=== PATIENT | male | born 1935 | race Caucasian/White ===

== ENCOUNTER → 2016-07-26 | Outpatient (CLI) | payer OTHER ==
[~2016-07-26] VITALS: Ht 172.7 cm; Wt 77.1 kg
[~2016-07-26] MED LIST: AMLO5TAB2 PO; Atorvastatin Calcium PO; CLOP75TA28 PO; D5W 5% IV ONE; DIPYRIDAMOLE (5MG/ML) 10 ML VIAL IV ONE; DIPYRIDAMOLE IV ONE; HYDR10TA PO; LEVO100T8 PO; LISI-646 PO; OMEP20TA44 PO; TRAM50TA2 PO
== END | disposition home or self-care (01) ==
LOC: Rad HDHVI 07:38
PROVIDERS: ATTEND Internal Medicine Cardiovascular Disease
DX: I10 Essential (primary) hypertension (principal); R06.02 Shortness of breath; E78.00 Pure hypercholesterolemia, unspecified; Z82.49 Family history of ischemic heart disease and other diseases of the circulatory system
CPT/HCPCS: 78452; 93005; 96374; 96375; A9500; J1245

== ENCOUNTER → 2016-08-06 | Outpatient (CLI) | payer OTHER ==
[~2016-08-06] MED LIST changes: +ASPI-231 PO; +CHOL20009 PO; -D5W 5% IV ONE; -DIPYRIDAMOLE (5MG/ML) 10 ML VIAL IV ONE; -DIPYRIDAMOLE IV ONE; +METO25TA62 PO; +TAMS0.4C36 PO
[2016-08-06 13:00] LABS: Basophils # (auto) 0 uL; Basophils % (auto) 0.7 % (0.0-2.0); Eosinophils # (auto) 0.3 uL; Eosinophils % (auto) 4.6 % (0.0-7.0); Hematocrit 44.6 % (41.0-53.0); Lymphocytes # (auto) 2.4 uL; Lymphocytes % (auto) 33.2 % (10.0-50.0); Mean Corpuscular Hemoglobin 27.2 pg (28.0-32.0); Mean Corpuscular Hgb Conc. 31.5 g/dL (32.0-36.0); Mean Corpuscular Volume 86.5 fL (80.0-100.0); Mean Platelet Volume 9.2 fL (7.4-10.4); Monocytes # (auto) 0.7 uL; Monocytes % (auto) 9.8 % (0.0-12.0); Neutrophils # (auto) 3.8 uL; Neutrophils % (auto) 51.7 % (37.0-80.0); Platelet Count (auto) 262 10^3/uL (140-450); Red Cell Distribution Width 14.4 % (11.6-16.0); White Blood Cell 7.3 10^3/uL (4.4-10.8)
[2016-08-06 13:04] LABS: INR 0.99 (0.9-1.15); Partial Thromboplastin Time 24.8 sec (22.64-33.71); Prothrombin Time 10.2 sec (9.37-12.3)
[2016-08-06 13:14] LABS: BUN/Creatinine Ratio 17.6; Bilirubin, Total 0.5 mg/dL (0.2-1.0); Calcium 9.1 mg/dL (8.5-10.1); Potassium 4.3 mmol/L (3.5-5.1)
== END | disposition home or self-care (01) ==
LOC: LAB 09:31
PROVIDERS: ATTEND Urology
DX: Z01.818 Encounter for other preprocedural examination (principal)
CPT/HCPCS: 36415; 80053; 85025; 85610; 85730

== ENCOUNTER 2016-08-08 09:17 | Day surgery (SDC) | payer OTHER ==
[~2016-08-08] VITALS: Ht 172.7 cm; Wt 76.2 kg
[~2016-08-08 09:17] MED LIST changes: -Atorvastatin Calcium PO; -CLOP75TA28 PO; -TRAM50TA2 PO
[2016-08-08] MEDS ORDERED: ceFAZolin 1GM/50ML D5W 50 ML IV ONE (12:55)
[2016-08-08] MEDS ORDERED: fentaNYL CITRATE 100 MCG/2 ML VL ONE (16:17)
[2016-08-08] MEDS ORDERED: GLYCOPYRROLATE 0.2 MG/ML 1ML VIAL ONE (16:18)
[2016-08-08] MEDS ORDERED: ONDANSETRON HCL 4 MG/2 ML VIAL ONE (16:18)
[2016-08-08] MEDS ORDERED: MIDAZOLAM HCL 1MG/1ML-2 ML VIAL ONE (16:18)
[2016-08-08] MEDS ORDERED: KETOROLAC TROMETH 60MG/2ML VIAL IM ONE (16:18)
[2016-08-08] MEDS ORDERED: LIDOCAINE HCL 2 %PF INJ 10ML AMP IJ ONE (16:18)
[2016-08-08] MEDS ORDERED: DEXAMETHASONE SOD PHOS 10MG/1ML VIAL INJ ONE (16:18)
[2016-08-08] MEDS ORDERED: PROPOFOL 10 MG/ML 20 ML IV ONE (16:18)
[2016-08-08] MEDS ORDERED: ONDANSETRON HCL 4 MG/2 ML VIAL IV ONE (17:30)
[2016-08-08] MEDS ORDERED: HYDROmorphone HCL 2 MG/ML VL IV PRN (17:30)
[2016-08-08 18:27] VITALS: BP 144/76
== END 2016-08-08 18:37 | disposition home or self-care (01) ==
LOC: SUR 09:17
PROVIDERS: ATTEND Urology
DX: N40.1 Benign prostatic hyperplasia with lower urinary tract symptoms (principal); N32.0 Bladder-neck obstruction; Z87.891 Personal history of nicotine dependence; I63.9 Cerebral infarction, unspecified; I10 Essential (primary) hypertension; I25.10 Atherosclerotic heart disease of native coronary artery without angina pectoris; K21.9 Gastro-esophageal reflux disease without esophagitis
CPT/HCPCS: 52601; J0690; J1100; J1885; J2250; J2405; J2704; J3010

== ENCOUNTER 2016-08-22 01:43 | Emergency (ER) | payer OTHER ==
[~2016-08-22] VITALS: Ht 172.7 cm; Wt 76.2 kg
[2016-08-22 04:39] LABS: Basophils # (auto) 0 uL; Basophils % (auto) 0.4 % (0.0-2.0); Eosinophils # (auto) 0.2 uL; Eosinophils % (auto) 2.3 % (0.0-7.0); Hematocrit 41.6 % (41.0-53.0); Hemoglobin 14.1 g/dL (13.5-17.5); Lymphocytes # (auto) 1.8 uL; Mean Corpuscular Hemoglobin 28.1 pg (28.0-32.0); Mean Corpuscular Hgb Conc. 33.8 g/dL (32.0-36.0); Mean Corpuscular Volume 83.1 fL (80.0-100.0); Mean Platelet Volume 8.1 fL (7.4-10.4); Monocytes # (auto) 0.6 uL; Monocytes % (auto) 6.2 % (0.0-12.0); Neutrophils # (auto) 7.7 uL; Neutrophils % (auto) 74.1 % (37.0-80.0); Platelet Count (auto) 317 10^3/uL (140-450); Red Cell Distribution Width 14.1 % (11.6-16.0); White Blood Cell 10.4 10^3/uL (4.4-10.8)
[2016-08-22 05:03] LABS: Albumin 3.6 g/dL (3.4-5.0); Anion Gap 9 (5-15); Aspartate Aminotransferase 22 U/L (15-37); BUN/Creatinine Ratio 19.2; Blood Urea Nitrogen 23 mg/dL (7-18); Calcium 8.6 mg/dL (8.5-10.1); Carbon Dioxide 25 mmol/L (21-32); Chloride 104 mmol/L (98-107); GFR African American 75 mL/min; GFR Non-African American 62 mL/min; Glucose 112 mg/dL (74-106); Potassium 4.5 mmol/L (3.5-5.1); Sodium 138 mmol/L (136-145)
[2016-08-22 05:08] LABS: Alkaline Phosphatase 58 U/L (45-117); Bilirubin, Total 0.4 mg/dL (0.2-1.0); Total Protein 6.8 g/dL (6.4-8.2)
[2016-08-22 07:45] VITALS: BP 160/83
== END 2016-08-22 09:26 | disposition home or self-care (01) ==
LOC: ER 01:47
DX: N39.0 Urinary tract infection, site not specified (principal); E07.9 Disorder of thyroid, unspecified; Z85.46 Personal history of malignant neoplasm of prostate; Z86.73 Personal history of transient ischemic attack (TIA), and cerebral infarction without residual deficits; Z79.899 Other long term (current) drug therapy
CPT/HCPCS: 36415; 80053; 84484; 85025; 93005

== ENCOUNTER → 2016-09-06 | Outpatient (CLI) | payer OTHER ==
[2016-09-06 10:54] LABS: Urine Bilirubin Negative (Negative); Urine Blood TRACE /uL (Negative); Urine Ca Oxalate Crystal MOD (None Seen); Urine Color Yellow (Yellow); Urine Glucose Normal (Normal); Urine Ketone Negative (Negative); Urine Mucus FEW (None Seen); Urine Nitrite Negative (Negative); Urine RBC 30 /hpf (0 - 3); Urine Urobilinogen Normal (Negative); Urine pH 6.5 (5.0-8.0)
== END | disposition home or self-care (01) ==
LOC: LAB 10:22
PROVIDERS: ATTEND Urology
DX: N31.2 Flaccid neuropathic bladder, not elsewhere classified (principal); R33.9 Retention of urine, unspecified; C61 Malignant neoplasm of prostate
CPT/HCPCS: 81001; 87086

== ENCOUNTER → 2016-09-24 | Outpatient (CLI) | payer OTHER | END | disposition home or self-care (01) | LOC: LAB 08:43 | PROVIDERS: ATTEND Urology | DX: N40.1 Benign prostatic hyperplasia with lower urinary tract symptoms (principal); C61 Malignant neoplasm of prostate | CPT/HCPCS: 84153 ==

== ENCOUNTER → 2016-09-24 | Outpatient (CLI) | payer OTHER ==
[2016-09-24 08:25] LABS: Basophils # (auto) 0.1 uL; Basophils % (auto) 0.6 % (0.0-2.0); Eosinophils # (auto) 0.3 uL; Eosinophils % (auto) 3.1 % (0.0-7.0); Hematocrit 41.6 % (41.0-53.0); Hemoglobin 13.9 g/dL (13.5-17.5); Lymphocytes # (auto) 1.4 uL; Mean Corpuscular Hgb Conc. 33.4 g/dL (32.0-36.0); Mean Corpuscular Volume 83.7 fL (80.0-100.0); Mean Platelet Volume 8.5 fL (7.4-10.4); Monocytes # (auto) 0.6 uL; Monocytes % (auto) 6.6 % (0.0-12.0); Neutrophils % (auto) 74.7 % (37.0-80.0); Platelet Count (auto) 314 10^3/uL (140-450); Red Cell Distribution Width 14.6 % (11.6-16.0); White Blood Cell 9.3 10^3/uL (4.4-10.8)
[2016-09-24 09:19] LABS: Albumin 3.9 g/dL (3.4-5.0); BUN/Creatinine Ratio 13.8; Bilirubin, Total 0.5 mg/dL (0.2-1.0); Calcium 9.1 mg/dL (8.5-10.1); Potassium 3.7 mmol/L (3.5-5.1); Total Protein 7.3 g/dL (6.4-8.2)
== END | disposition home or self-care (01) ==
LOC: LAB 07:48
PROVIDERS: ATTEND Internal Medicine
DX: I47.1 Supraventricular tachycardia (principal); I69.998 Other sequelae following unspecified cerebrovascular disease; E23.0 Hypopituitarism; Z12.11 Encounter for screening for malignant neoplasm of colon
CPT/HCPCS: 36415; 80053; 80061; 82270; 82306; 82607; 84443; 85025

== ENCOUNTER → 2016-11-04 | Outpatient (CLI) | payer OTHER | END | disposition home or self-care (01) | LOC: LAB 06:54 | PROVIDERS: ATTEND Internal Medicine | DX: E23.0 Hypopituitarism (principal); E11.9 Type 2 diabetes mellitus without complications | CPT/HCPCS: 36415; 83036; 84439; 84443 ==

== ENCOUNTER 2016-12-02 11:01 | Inpatient (IN) | payer OTHER ==
[~2016-12-02] VITALS: Ht 172.7 cm; Wt 79.3 kg
[2016-12-02 12:04] LABS: Basophils # (auto) 0.1 uL; Basophils % (auto) 1.1 % (0.0-2.0); Eosinophils # (auto) 0.2 uL; Eosinophils % (auto) 2.8 % (0.0-7.0); Hematocrit 40.5 % (41.0-53.0); Hemoglobin 13.8 g/dL (13.5-17.5); Lymphocytes # (auto) 2.2 uL; Lymphocytes % (auto) 24.7 % (10.0-50.0); Mean Corpuscular Hemoglobin 28.1 pg (28.0-32.0); Mean Corpuscular Hgb Conc. 34.1 g/dL (32.0-36.0); Mean Corpuscular Volume 82.4 fL (80.0-100.0); Monocytes # (auto) 0.7 uL; Monocytes % (auto) 7.4 % (0.0-12.0); Neutrophils # (auto) 5.6 uL; Platelet Count (auto) 169 10^3/uL (140-450); Red Cell Distribution Width 15.1 % (11.6-16.0); White Blood Cell 8.8 10^3/uL (4.4-10.8)
[2016-12-02] MEDS ORDERED: DILTIAZEM HCL 25 MG/5 ML VIAL IV ONE (12:15)
[2016-12-02] MEDS ORDERED: BET25T PO (12:20)
[2016-12-02] MEDS ORDERED: CHOL1TAB22 PO (12:20)
[2016-12-02] MEDS ORDERED: LISI10TA6 PO (12:20)
[2016-12-02] MEDS ORDERED: METO25TA62 PO (12:20)
[2016-12-02 12:25] LABS: Albumin 3.2 g/dL (3.4-5.0); Anion Gap 10 (5-15); BUN/Creatinine Ratio 21.7; Blood Urea Nitrogen 23 mg/dL (7-18); Calcium 8.5 mg/dL (8.5-10.1); Carbon Dioxide 22 mmol/L (21-32); Chloride 105 mmol/L (98-107); GFR African American 86 mL/min; GFR Non-African American 71 mL/min; Glucose 128 mg/dL (74-106); Magnesium 2.1 mg/dL (1.6-2.6); Potassium 3.8 mmol/L (3.5-5.1); Sodium 137 mmol/L (136-145)
[2016-12-02 12:40] LABS: Alkaline Phosphatase 62 U/L (45-117); Aspartate Aminotransferase 26 U/L (15-37); Bilirubin, Total 0.3 mg/dL (0.2-1.0); Total Protein 6.6 g/dL (6.4-8.2)
[2016-12-02] MEDS ORDERED: SODIUM CHLORIDE 0.9% 1,000 ML IV ONE (12:45)
[2016-12-02 13:31] LABS: B-Type Natriuretic Peptide 109.97 pg/mL (0-100); Temperature: 23.3 C (20.0-25.0)
[2016-12-02] MEDS ORDERED: HYDROcodone-ACET 5/325MG TAB PO PRN (15:30)
[2016-12-02] MEDS ORDERED: ONDANSETRON HCL 4 MG/2 ML VIAL IV PRN (15:30)
[2016-12-02] MEDS ORDERED: NITROGLYCERIN 0.4 MG SL TAB SL PRN (15:30)
[2016-12-02] MEDS ORDERED: DOCUSATE SOD 100 MG CAP PO PRN (15:30)
[2016-12-02] MEDS ORDERED: TEMAZEPAM 15 MG CAP PO PRN (15:30)
[2016-12-02] MEDS ORDERED: MORPHINE SULF INJ 2 MG/ML SYRINGE 1ML IV PRN ×2 (15:30)
[2016-12-02] MEDS ORDERED: ACETAMINOPHEN 325 MG TAB PO PRN (15:30)
[2016-12-02] MEDS ORDERED: LEVOTHYROXINE SODIUM 100 MCG TAB PO ONE (16:15)
[2016-12-02] MEDS ORDERED: amLODIPine BESYLATE 5 MG TAB PO ONE (16:15)
[2016-12-02] MEDS: PANTOPRAZOLE 40 MG TAB PO SCH (16:32)
[2016-12-02] MEDS: ENOXAPARIN SOD 40 MG/0.4 ML SYRINGE SC SCH (16:32)
[2016-12-02] MEDS: LISINOPRIL 10 MG TAB PO SCH ×2 (17:42→18:14)
[2016-12-02] MEDS: TAMSULOSIN HYDROCHLORIDE 0.4 MG CAP PO SCH (17:43)
[2016-12-02] MEDS: BOOST PLUS 8 ounce PO SCH (17:47)
[2016-12-02 18:40] LABS: INR 0.98 (0.9-1.15); Partial Thromboplastin Time 26.6 sec (22.64-33.71); Prothrombin Time 10.7 sec (9.37-12.3)
[2016-12-02 19:02] LABS: Urine Bilirubin Negative (Negative); Urine Color Yellow (Yellow); Urine Glucose Normal (Normal); Urine Ketone Negative (Negative); Urine Nitrite Negative (Negative); Urine RBC 7 /hpf (0 - 3); Urine Squamous Epithelial Cell FEW /hpf (<5); Urine Urobilinogen Normal (Negative); Urine pH 6.5 (5.0-8.0)
[2016-12-02 19:03] LABS: Urine Blood 2+ /uL (Negative)
[2016-12-02] MEDS ORDERED: WARFARIN SODIUM 5 MG TAB PO ONE (19:45)
[2016-12-02 21:30] VITALS: BP 144/70
[2016-12-02] MEDS ORDERED: FAMOTIDINE 20 MG TAB PO SCH (22:00)
[2016-12-02] MEDS: SODIUM CHLOR 0.9% PF (SALINE LOCK) 10ML VIAL IV SCH (22:04)
[2016-12-02] MEDS: DILTIAZEM HCL 60 MG TAB PO SCH (22:06)
[2016-12-02] MEDS: HYDROCORTISONE 10 MG TAB PO SCH (22:06)
[2016-12-02] MEDS: METOPROLOL TARTRATE 25 MG TAB PO SCH (22:06)
[2016-12-02] MEDS: BETHANECHOL CHLORIDE 25 MG TAB PO SCH (22:07)
[2016-12-03] VITALS (7 sets, daily range): BP systolic 106–131; BP diastolic 52–89
[2016-12-03] MEDS: SODIUM CHLOR 0.9% PF (SALINE LOCK) 10ML VIAL IV SCH ×3 (05:20→22:04)
[2016-12-03] MEDS: DILTIAZEM HCL 60 MG TAB PO SCH ×3 (05:22→22:00)
[2016-12-03] MEDS: BETHANECHOL CHLORIDE 25 MG TAB PO SCH ×3 (05:22→22:03)
[2016-12-03 05:47] LABS: Basophils # (auto) 0 uL; Basophils % (auto) 0.5 % (0.0-2.0); Eosinophils # (auto) 0.3 uL; Eosinophils % (auto) 3.4 % (0.0-7.0); Hemoglobin 12.5 g/dL (13.5-17.5); Lymphocytes # (auto) 1.7 uL; Lymphocytes % (auto) 22.4 % (10.0-50.0); Mean Corpuscular Hemoglobin 28.1 pg (28.0-32.0); Mean Corpuscular Hgb Conc. 33.6 g/dL (32.0-36.0); Mean Corpuscular Volume 83.6 fL (80.0-100.0); Mean Platelet Volume 9.1 fL (7.4-10.4); Monocytes # (auto) 0.7 uL; Monocytes % (auto) 9.9 % (0.0-12.0); Neutrophils # (auto) 4.7 uL; Neutrophils % (auto) 63.8 % (37.0-80.0); Platelet Count (auto) 214 10^3/uL (140-450); Red Cell Distribution Width 15.1 % (11.6-16.0); White Blood Cell 7.4 10^3/uL (4.4-10.8)
[2016-12-03 05:49] LABS: INR 0.98 (0.9-1.15); Prothrombin Time 10.7 sec (9.37-12.3)
[2016-12-03 06:08] LABS: Bilirubin, Total 0.3 mg/dL (0.2-1.0); Calcium 8.2 mg/dL (8.5-10.1); Potassium 4.4 mmol/L (3.5-5.1); Total Protein 5.4 g/dL (6.4-8.2)
[2016-12-03] MEDS: LEVOTHYROXINE SODIUM 100 MCG TAB PO SCH (06:38)
[2016-12-03] MEDS: LISINOPRIL 10 MG TAB PO SCH ×2 (08:00→17:20)
[2016-12-03] MEDS: BOOST PLUS 8 ounce PO SCH ×3 (08:00→17:20)
[2016-12-03] MEDS: MULTIPLE VITAMIN TAB PO SCH (09:26)
[2016-12-03] MEDS: ASPirin-EC 81 mg tab PO SCH (09:27)
[2016-12-03] MEDS: HYDROCORTISONE 10 MG TAB PO SCH ×2 (09:28→22:03)
[2016-12-03] MEDS: CHOLECALCIFEROL (VITD3) 1,000 UNIT TAB PO SCH (09:34)
[2016-12-03] MEDS: PANTOPRAZOLE 40 MG TAB PO SCH (09:34)
[2016-12-03] MEDS: METOPROLOL TARTRATE 25 MG TAB PO SCH ×2 (09:34→22:00)
[2016-12-03] MEDS: ENOXAPARIN SOD 40 MG/0.4 ML SYRINGE SC SCH (09:34)
[2016-12-03] MEDS: amLODIPine BESYLATE 5 MG TAB PO SCH (09:34)
[2016-12-03] MEDS: cefTRIAXone 1GM/50ML D5W 50 ML IV SCH (16:40)
[2016-12-03] MEDS ORDERED: WARFARIN SODIUM 2.5 MG TAB PO ONE (17:00)
[2016-12-03] MEDS: TAMSULOSIN HYDROCHLORIDE 0.4 MG CAP PO SCH (17:19)
[2016-12-04 05:00] VITALS: BP 135/63
[2016-12-04 05:57] LABS: Basophils # (auto) 0 uL; Basophils % (auto) 0.6 % (0.0-2.0); Eosinophils # (auto) 0.3 uL; Eosinophils % (auto) 4.3 % (0.0-7.0); Hematocrit 38.8 % (41.0-53.0); Lymphocytes # (auto) 1.5 uL; Lymphocytes % (auto) 20.3 % (10.0-50.0); Mean Corpuscular Hemoglobin 27.9 pg (28.0-32.0); Mean Corpuscular Hgb Conc. 33.6 g/dL (32.0-36.0); Mean Platelet Volume 9.1 fL (7.4-10.4); Monocytes # (auto) 0.6 uL; Monocytes % (auto) 8.2 % (0.0-12.0); Neutrophils # (auto) 4.8 uL; Neutrophils % (auto) 66.6 % (37.0-80.0); Platelet Count (auto) 204 10^3/uL (140-450); Red Cell Distribution Width 14.1 % (11.6-16.0); White Blood Cell 7.3 10^3/uL (4.4-10.8)
[2016-12-04] MEDS: DILTIAZEM HCL 60 MG TAB PO SCH ×3 (06:00→21:52)
[2016-12-04 06:11] LABS: INR 1.03 (0.9-1.15); Partial Thromboplastin Time 27.5 sec (22.64-33.71); Prothrombin Time 11.2 sec (9.37-12.3)
[2016-12-04 06:15] LABS: BUN/Creatinine Ratio 22.2; Calcium 8.1 mg/dL (8.5-10.1); Potassium 4.6 mmol/L (3.5-5.1)
[2016-12-04] MEDS: SODIUM CHLOR 0.9% PF (SALINE LOCK) 10ML VIAL IV SCH ×3 (06:27→21:50)
[2016-12-04] MEDS: LEVOTHYROXINE SODIUM 100 MCG TAB PO SCH (06:28)
[2016-12-04] MEDS: BETHANECHOL CHLORIDE 25 MG TAB PO SCH ×3 (06:28→21:52)
[2016-12-04] MEDS: BOOST PLUS 8 ounce PO SCH ×3 (08:04→18:40)
[2016-12-04] MEDS: LISINOPRIL 10 MG TAB PO SCH ×2 (08:06→17:38)
[2016-12-04 09:10] VITALS: BP 140/71
[2016-12-04] MEDS: PANTOPRAZOLE 40 MG TAB PO SCH (10:30)
[2016-12-04] MEDS: MULTIPLE VITAMIN TAB PO SCH (10:30)
[2016-12-04] MEDS: ENOXAPARIN SOD 40 MG/0.4 ML SYRINGE SC SCH (10:30)
[2016-12-04] MEDS: cefTRIAXone 1GM/50ML D5W 50 ML IV SCH (10:30)
[2016-12-04] MEDS: CHOLECALCIFEROL (VITD3) 1,000 UNIT TAB PO SCH (10:31)
[2016-12-04] MEDS: amLODIPine BESYLATE 5 MG TAB PO SCH (10:32)
[2016-12-04] MEDS: METOPROLOL TARTRATE 25 MG TAB PO SCH ×2 (10:32→21:52)
[2016-12-04] MEDS: ASPirin-EC 81 mg tab PO SCH (10:33)
[2016-12-04] MEDS: HYDROCORTISONE 10 MG TAB PO SCH ×2 (10:33→21:52)
[2016-12-04 13:00] VITALS: BP 123/65
[2016-12-04 16:53] VITALS: BP 125/66
[2016-12-04] MEDS ORDERED: WARFARIN SODIUM 2.5 MG TAB PO ONE (17:00)
[2016-12-04] MEDS: TAMSULOSIN HYDROCHLORIDE 0.4 MG CAP PO SCH (17:36)
[2016-12-04 22:14] VITALS: BP 118/66
[2016-12-05 05:00] VITALS: BP 123/68
[2016-12-05] MEDS: SODIUM CHLOR 0.9% PF (SALINE LOCK) 10ML VIAL IV SCH ×3 (05:49→21:39)
[2016-12-05] MEDS: LEVOTHYROXINE SODIUM 100 MCG TAB PO SCH (05:50)
[2016-12-05] MEDS: BETHANECHOL CHLORIDE 25 MG TAB PO SCH ×3 (05:50→21:41)
[2016-12-05] MEDS: DILTIAZEM HCL 60 MG TAB PO SCH ×3 (05:52→21:41)
[2016-12-05 05:53] LABS: Basophils # (auto) 0.1 uL; Basophils % (auto) 0.9 % (0.0-2.0); Eosinophils # (auto) 0.3 uL; Eosinophils % (auto) 5.2 % (0.0-7.0); Hematocrit 37.9 % (41.0-53.0); Hemoglobin 12.7 g/dL (13.5-17.5); Lymphocytes # (auto) 1.5 uL; Lymphocytes % (auto) 26.7 % (10.0-50.0); Mean Corpuscular Hemoglobin 27.8 pg (28.0-32.0); Mean Corpuscular Hgb Conc. 33.5 g/dL (32.0-36.0); Mean Platelet Volume 9.1 fL (7.4-10.4); Monocytes # (auto) 0.5 uL; Monocytes % (auto) 8.3 % (0.0-12.0); Neutrophils # (auto) 3.3 uL; Neutrophils % (auto) 58.9 % (37.0-80.0); Platelet Count (auto) 224 10^3/uL (140-450); Red Cell Distribution Width 14.7 % (11.6-16.0); White Blood Cell 5.5 10^3/uL (4.4-10.8)
[2016-12-05 06:07] LABS: INR 1.26 (0.9-1.15); Partial Thromboplastin Time 28.8 sec (22.64-33.71); Prothrombin Time 13.8 sec (9.37-12.3)
[2016-12-05 06:11] LABS: BUN/Creatinine Ratio 27.5; Calcium 8.3 mg/dL (8.5-10.1); Potassium 4.7 mmol/L (3.5-5.1)
[2016-12-05 08:06] VITALS: BP 126/69
[2016-12-05] MEDS: LISINOPRIL 10 MG TAB PO SCH ×2 (08:16→18:02)
[2016-12-05] MEDS: cefTRIAXone 1GM/50ML D5W 50 ML IV SCH (08:16)
[2016-12-05] MEDS: BOOST PLUS 8 ounce PO SCH ×3 (08:17→17:59)
[2016-12-05] MEDS: PANTOPRAZOLE 40 MG TAB PO SCH (11:11)
[2016-12-05] MEDS: ASPirin-EC 81 mg tab PO SCH (11:12)
[2016-12-05] MEDS: amLODIPine BESYLATE 5 MG TAB PO SCH (11:12)
[2016-12-05] MEDS: MULTIPLE VITAMIN TAB PO SCH (11:13)
[2016-12-05] MEDS: CHOLECALCIFEROL (VITD3) 1,000 UNIT TAB PO SCH (11:13)
[2016-12-05] MEDS: METOPROLOL TARTRATE 25 MG TAB PO SCH ×2 (11:13→21:41)
[2016-12-05] MEDS: HYDROCORTISONE 10 MG TAB PO SCH ×2 (11:13→21:41)
[2016-12-05] MEDS: ENOXAPARIN SOD 40 MG/0.4 ML SYRINGE SC SCH (11:14)
[2016-12-05 12:08] VITALS: BP 128/68
[2016-12-05 16:31] VITALS: BP 113/67
[2016-12-05] MEDS ORDERED: WARFARIN SODIUM 10 MG TAB PO ONE (17:00)
[2016-12-05] MEDS: TAMSULOSIN HYDROCHLORIDE 0.4 MG CAP PO SCH (18:01)
[2016-12-05 22:00] VITALS: BP 127/69
[2016-12-06 05:00] VITALS: BP 137/69
[2016-12-06] MEDS: SODIUM CHLOR 0.9% PF (SALINE LOCK) 10ML VIAL IV SCH ×2 (05:50→14:00)
[2016-12-06] MEDS: DILTIAZEM HCL 60 MG TAB PO SCH ×2 (05:51→14:00)
[2016-12-06] MEDS: LEVOTHYROXINE SODIUM 100 MCG TAB PO SCH (05:51)
[2016-12-06] MEDS: BETHANECHOL CHLORIDE 25 MG TAB PO SCH ×2 (05:51→14:00)
[2016-12-06 06:03] LABS: Basophils # (auto) 0 uL; Basophils % (auto) 0.7 % (0.0-2.0); Eosinophils # (auto) 0.3 uL; Eosinophils % (auto) 4.6 % (0.0-7.0); Hematocrit 38.9 % (41.0-53.0); Hemoglobin 13.1 g/dL (13.5-17.5); Lymphocytes # (auto) 1.5 uL; Lymphocytes % (auto) 27.1 % (10.0-50.0); Mean Corpuscular Hemoglobin 27.8 pg (28.0-32.0); Mean Corpuscular Hgb Conc. 33.7 g/dL (32.0-36.0); Mean Corpuscular Volume 82.7 fL (80.0-100.0); Mean Platelet Volume 9.2 fL (7.4-10.4); Monocytes # (auto) 0.5 uL; Monocytes % (auto) 8.2 % (0.0-12.0); Neutrophils # (auto) 3.4 uL; Neutrophils % (auto) 59.4 % (37.0-80.0); Platelet Count (auto) 229 10^3/uL (140-450); Red Cell Distribution Width 14.7 % (11.6-16.0); White Blood Cell 5.6 10^3/uL (4.4-10.8)
[2016-12-06 06:12] LABS: Partial Thromboplastin Time 30.7 sec (22.64-33.71)
[2016-12-06 06:13] LABS: INR 1.6 (0.9-1.15); Prothrombin Time 17.5 sec (9.37-12.3)
[2016-12-06 06:15] LABS: Calcium 8.6 mg/dL (8.5-10.1); Potassium 4.9 mmol/L (3.5-5.1)
[2016-12-06 06:17] LABS: BUN/Creatinine Ratio 26.3
[2016-12-06 07:52] VITALS: BP 146/75
[2016-12-06] MEDS: BOOST PLUS 8 ounce PO SCH ×2 (08:43→12:00)
[2016-12-06] MEDS: cefTRIAXone 1GM/50ML D5W 50 ML IV SCH (08:46)
[2016-12-06] MEDS: LISINOPRIL 10 MG TAB PO SCH (08:46)
[2016-12-06] MEDS: ENOXAPARIN SOD 40 MG/0.4 ML SYRINGE SC SCH (10:00)
[2016-12-06] MEDS: HYDROCORTISONE 10 MG TAB PO SCH (11:02)
[2016-12-06] MEDS: ASPirin-EC 81 mg tab PO SCH (11:02)
[2016-12-06] MEDS: MULTIPLE VITAMIN TAB PO SCH (11:03)
[2016-12-06] MEDS: CHOLECALCIFEROL (VITD3) 1,000 UNIT TAB PO SCH (11:03)
[2016-12-06] MEDS: PANTOPRAZOLE 40 MG TAB PO SCH (11:03)
[2016-12-06] MEDS: amLODIPine BESYLATE 5 MG TAB PO SCH (11:04)
[2016-12-06] MEDS: METOPROLOL TARTRATE 25 MG TAB PO SCH (11:05)
[2016-12-06] MEDS ORDERED: WARF5TAB71 PO (11:27)
[2016-12-06] MEDS ORDERED: CEPH-37 PO (11:27)
[2016-12-06] MEDS ORDERED: DIL60T PO (11:27)
[2016-12-06 11:47] VITALS: BP 119/66
[2016-12-06 12:00] VITALS: BP 119/66
[2016-12-06 12:20] VITALS: BP 119/66
[2016-12-06] MEDS ORDERED: WARFARIN SODIUM 2.5 MG TAB PO ONE (17:00)
== END 2016-12-06 13:47 | disposition home or self-care (01) | DRG 309 ==
LOC: ER 11:01 → EDBD 11:01 → TELE 11:02 → DOU IN ICU 21:31 → TELE-EAST 12-03 17:09
PROVIDERS: ADMIT Internal Medicine; ATTEND Nurse Practitioner Acute Care
DX: I48.91 Unspecified atrial fibrillation (principal); E44.0 Moderate protein-calorie malnutrition; I50.42 Chronic combined systolic (congestive) and diastolic (congestive) heart failure; N39.0 Urinary tract infection, site not specified; I13.0 Hypertensive heart and chronic kidney disease with heart failure and stage 1 through stage 4 chronic kidney disease, or unspecified chronic kidney disease; R55 Syncope and collapse; I48.92 Unspecified atrial flutter; E03.9 Hypothyroidism, unspecified; E78.5 Hyperlipidemia, unspecified; I49.5 Sick sinus syndrome; G93.89 Other specified disorders of brain; N18.2 Chronic kidney disease, stage 2 (mild); I15.9 Secondary hypertension, unspecified; Z86.73 Personal history of transient ischemic attack (TIA), and cerebral infarction without residual deficits; Z85.46 Personal history of malignant neoplasm of prostate; Z83.3 Family history of diabetes mellitus; Z87.820 Personal history of traumatic brain injury; Z87.442 Personal history of urinary calculi; Z68.26 Body mass index [BMI] 26.0-26.9, adult; Z79.01 Long term (current) use of anticoagulants; Z90.89 Acquired absence of other organs; Z90.49 Acquired absence of other specified parts of digestive tract
CPT/HCPCS: 36415; 51702; 70450; 80048; 80053; 81001; 82962; 83735; 83880; 84443; 84484; 85025; 85379; 85610; 85730; 87081; 87086; 96361; 96374; 97163; 99291; J0696

== ENCOUNTER → 2017-01-23 | Outpatient (CLI) | payer OTHER ==
[~2017-01-23] MED LIST changes: +BET25T PO; +CEPH-37 PO; +CHOL1TAB22 PO; +DIL60T PO; -LISI-646 PO; +LISI10TA6 PO; +WARF5TAB71 PO
[2017-01-23 14:54] LABS: Urine Bilirubin Negative (Negative); Urine Blood Negative /uL (Negative); Urine Color Yellow (Yellow); Urine Ketone TRACE (Negative); Urine Mucus FEW (None Seen); Urine Nitrite Negative (Negative); Urine RBC 3 /hpf (0 - 3); Urine Squamous Epithelial Cell FEW /hpf (<5); Urine Urobilinogen Normal (Negative)
[2017-01-23 15:06] LABS: Urine Glucose 1+ mg/dL (Normal)
== END | disposition home or self-care (01) ==
LOC: LAB 14:25
PROVIDERS: ATTEND Urology
DX: N32.81 Overactive bladder (principal); R32 Unspecified urinary incontinence; E29.1 Testicular hypofunction
CPT/HCPCS: 81001

== ENCOUNTER → 2017-01-23 | Outpatient (CLI) | payer OTHER | END | disposition home or self-care (01) | LOC: LAB 09:57 | PROVIDERS: ATTEND Urology | DX: R32 Unspecified urinary incontinence (principal); E29.1 Testicular hypofunction; N32.1 Vesicointestinal fistula | CPT/HCPCS: 84153 ==

== ENCOUNTER → 2017-04-01 | Outpatient (CLI) | payer OTHER ==
[2017-04-01 13:13] LABS: Eosinophils # (auto) 0.1 uL; Hematocrit 43.4 % (41.0-53.0); Mean Corpuscular Hemoglobin 26.9 pg (28.0-32.0); Mean Corpuscular Hgb Conc. 33.3 g/dL (32.0-36.0); Monocytes # (auto) 0.6 uL; Neutrophils # (auto) 4.2 uL; Platelet Count (auto) 202 10^3/uL (140-450)
[2017-04-01 13:16] LABS: Basophils # (auto) 0 uL; Basophils % (auto) 0.7 % (0.0-2.0); Eosinophils % (auto) 1.5 % (0.0-7.0); Hemoglobin 14.5 g/dL (13.5-17.5); Lymphocytes # (auto) 1.2 uL; Lymphocytes % (auto) 19.9 % (10.0-50.0); Mean Corpuscular Volume 80.8 fL (80.0-100.0); Mean Platelet Volume 8.2 fL (6.9-10.8); Monocytes % (auto) 9.4 % (0.0-12.0); Neutrophils % (auto) 68.5 % (37.0-80.0); Red Cell Distribution Width 15.9 % (11.8-14.3); White Blood Cell 6.1 10^3/uL (4.4-10.8)
[2017-04-01 13:28] LABS: INR 1.51 (0.9-1.15); Prothrombin Time 16.5 sec (9.37-12.3)
[2017-04-01 14:07] LABS: BUN/Creatinine Ratio 16.8; Calcium 8.4 mg/dL (8.5-10.1); Potassium 4.2 mmol/L (3.5-5.1)
== END | disposition home or self-care (01) ==
LOC: LAB 12:30
PROVIDERS: ATTEND Internal Medicine
DX: Z01.810 Encounter for preprocedural cardiovascular examination (principal); Z79.899 Other long term (current) drug therapy
CPT/HCPCS: 36415; 80048; 85025; 85610

== ENCOUNTER → 2017-04-04 | Outpatient (CLI) | payer OTHER ==
[2017-04-04 10:06] LABS: BUN/Creatinine Ratio 14.3; Calcium 8.5 mg/dL (8.5-10.1); Potassium 3.6 mmol/L (3.5-5.1)
== END | disposition home or self-care (01) ==
LOC: LAB 09:21
PROVIDERS: ATTEND Internal Medicine
DX: E11.9 Type 2 diabetes mellitus without complications (principal)
CPT/HCPCS: 36415; 80048; 82043; 83036

== ENCOUNTER 2017-04-11 11:52 | Inpatient (IN) | payer OTHER ==
[~2017-04-11] VITALS: Ht 172.7 cm; Wt 72.7 kg
[~2017-04-11 11:52] MED LIST changes: -ASPI-231 PO; -BET25T PO; -CEPH-37 PO; -CHOL1TAB22 PO; -METO25TA62 PO
[2017-04-11] MEDS ORDERED: VANCOMYCIN 1GM/250ML D5W 250 ML IV ONE ×2 (12:40→12:45)
[2017-04-11] MEDS ORDERED: ceFAZolin 1GM/50ML D5W 50 ML IV ONE ×2 (12:40→12:45)
[2017-04-11] MEDS ORDERED: VANCOMYCIN HCL 1000 MG VL ONE (12:40)
[2017-04-11] MEDS ORDERED: MIDAZOLAM HCL 1MG/1ML-2 ML VIAL ONE (12:41)
[2017-04-11] MEDS ORDERED: fentaNYL CITRATE 100 MCG/2 ML VL ONE (12:41)
[2017-04-11] MEDS ORDERED: VANCOMYCIN HCL 1000 MG VL IR ONE (12:45)
[2017-04-11] MEDS ORDERED: LIDOCAINE 2%HCL (LOCAL ANESTH.) INJ 20ML MDV ONE (13:50)
[2017-04-11] MEDS ORDERED: HYDROcodone-ACET 5/325MG TAB PO PRN (15:30)
[2017-04-11] MEDS ORDERED: LORazepam 0.5 MG TAB PO PRN (15:30)
[2017-04-11] MEDS ORDERED: ACETAMINOPHEN 325 MG TAB PO PRN (15:30)
[2017-04-11] MEDS ORDERED: MORPHINE SULF INJ 2 MG/ML SYRINGE 1ML IV PRN (15:30)
[2017-04-11] MEDS ORDERED: NITROGLYCERIN 0.4 MG SL TAB SL PRN (15:30)
[2017-04-11 16:20] VITALS: BP 134/80
[2017-04-11 17:00] VITALS: BP 160/82
[2017-04-11] MEDS ORDERED: HYDROCORTISONE 10 MG TAB PO SCH (18:00)
[2017-04-11] MEDS ORDERED: amLODIPine BESYLATE 5 MG TAB PO SCH (18:00)
[2017-04-11 22:00] VITALS: BP 145/81
[2017-04-11] MEDS: DILTIAZEM HCL 60 MG TAB PO SCH (22:21)
[2017-04-11] MEDS: LISINOPRIL 10 MG TAB PO SCH (22:22)
[2017-04-11] MEDS: SODIUM CHLOR 0.9% PF (SALINE LOCK) 10ML VIAL IV SCH (22:25)
[2017-04-12] MEDS: VANCOMYCIN 1GM/250ML D5W 250 ML IV SCH ×2 (00:37→09:42)
[2017-04-12 05:00] VITALS: BP 162/78
[2017-04-12] MEDS: SODIUM CHLOR 0.9% PF (SALINE LOCK) 10ML VIAL IV SCH (05:59)
[2017-04-12] MEDS: DILTIAZEM HCL 60 MG TAB PO SCH (05:59)
[2017-04-12] MEDS ORDERED: LEVOTHYROXINE SODIUM 100 MCG TAB PO SCH (07:00)
[2017-04-12] MEDS ORDERED: HYDROCORTISONE 10 MG TAB PO SCH (08:00)
[2017-04-12 09:07] VITALS: BP 147/87
[2017-04-12] MEDS: LISINOPRIL 10 MG TAB PO SCH (09:43)
[2017-04-12 13:14] VITALS: BP 147/87
[2017-04-12 13:15] VITALS: BP 151/80
== END 2017-04-12 13:50 | disposition home or self-care (01) | DRG 243 ==
LOC: CATH 11:52 → TELE-EAST 11:53
PROVIDERS: ADMIT Internal Medicine Cardiovascular Disease; ATTEND Internal Medicine Cardiovascular Disease
PROC: 0JH606Z Insertion of Pacemaker, Dual Chamber into Chest Subcutaneous Tissue and Fascia, Open Approach (ICD-10-PCS; principal; 2017-04-11)
PROC: 02H63JZ Insertion of Pacemaker Lead into Right Atrium, Percutaneous Approach (ICD-10-PCS; 2017-04-11)
PROC: 02HK3JZ Insertion of Pacemaker Lead into Right Ventricle, Percutaneous Approach (ICD-10-PCS; 2017-04-11)
DX: I49.5 Sick sinus syndrome (principal); D68.59 Other primary thrombophilia; I48.0 Paroxysmal atrial fibrillation; Z79.01 Long term (current) use of anticoagulants
CPT/HCPCS: 33208; 71010; 87081; 93005; 99152; 99153; C1785; J0690; J2250

== ENCOUNTER → 2017-04-24 | Outpatient (CLI) | payer OTHER | END | disposition home or self-care (01) | LOC: LAB 10:33 | PROVIDERS: ATTEND Urology | DX: E29.1 Testicular hypofunction (principal); N40.1 Benign prostatic hyperplasia with lower urinary tract symptoms; R32 Unspecified urinary incontinence | CPT/HCPCS: 36415; 84153; 84403 ==

== ENCOUNTER → 2017-04-30 | Outpatient (CLI) | payer OTHER ==
[2017-04-30 11:00] VITALS: BP 127/63
[2017-04-30 13:15] VITALS: BP 126/68
== END | disposition home or self-care (01) ==
LOC: CHF HDHVI 10:53
PROVIDERS: ATTEND Internal Medicine Cardiovascular Disease
DX: R53.83 Other fatigue (principal); R53.81 Other malaise
CPT/HCPCS: G0463

== ENCOUNTER → 2017-05-01 | Outpatient (CLI) | payer OTHER | END | disposition home or self-care (01) | LOC: LAB 12:09 | DX: C61 Malignant neoplasm of prostate (principal); R33.9 Retention of urine, unspecified; R35.1 Nocturia; R30.0 Dysuria | CPT/HCPCS: 87086 ==

== ENCOUNTER → 2017-07-25 | Outpatient (CLI) | payer OTHER ==
[2017-07-25 09:59] LABS: Urine Bacteria NONE SEEN /hpf (None Seen); Urine Blood TRACE /uL (Negative); Urine Mucus FEW (None Seen); Urine Specific Gravity 1.023 (1.001-1.035); Urine WBC 141 /hpf (0 - 3)
== END | disposition home or self-care (01) ==
LOC: LAB 08:45
PROVIDERS: ATTEND Urology
DX: C61 Malignant neoplasm of prostate (principal); N40.1 Benign prostatic hyperplasia with lower urinary tract symptoms; E29.1 Testicular hypofunction
CPT/HCPCS: 81001; 84153; 87086; 87088; 87186

== ENCOUNTER → 2017-09-10 | Outpatient (CLI) | payer OTHER ==
[2017-09-10 09:00] LABS: Basophils # (auto) 0.1 uL; Eosinophils # (auto) 0.3 uL; Eosinophils % (auto) 3.3 % (0.0-7.0); Hematocrit 48.5 % (41.0-53.0); Hemoglobin 16.4 g/dL (13.5-17.5); Lymphocytes # (auto) 2.4 uL; Lymphocytes % (auto) 29.8 % (10.0-50.0); Mean Corpuscular Hemoglobin 28.3 pg (28.0-32.0); Mean Corpuscular Hgb Conc. 33.8 g/dL (32.0-36.0); Mean Corpuscular Volume 83.9 fL (80.0-100.0); Monocytes # (auto) 0.7 uL; Monocytes % (auto) 8.8 % (0.0-12.0); Neutrophils # (auto) 4.6 uL; Neutrophils % (auto) 57.1 % (37.0-80.0); Nucleated Red Blood Cells % 0.1 %; Platelet Count (auto) 290 10^3/uL (140-450); Red Blood Cells 5.78 10^6/uL (4.5-5.90); Red Cell Distribution Width 14.8 % (11.8-14.3)
[2017-09-10 09:06] LABS: BUN/Creatinine Ratio 12.8; Bilirubin, Total 0.5 mg/dL (0.2-1.0); Calcium 9.4 mg/dL (8.5-10.1); Potassium 3.8 mmol/L (3.5-5.1); Total Protein 7.6 g/dL (6.4-8.2)
== END | disposition home or self-care (01) ==
LOC: LAB 07:51
PROVIDERS: ATTEND Internal Medicine
DX: Z12.11 Encounter for screening for malignant neoplasm of colon (principal); I10 Essential (primary) hypertension; E11.21 Type 2 diabetes mellitus with diabetic nephropathy
CPT/HCPCS: 36415; 80053; 80061; 82306; 83036; 84439; 84443; 85025

== ENCOUNTER → 2017-10-23 | Outpatient (CLI) | payer OTHER | END | disposition home or self-care (01) | LOC: LAB 14:00 | PROVIDERS: ATTEND Urology | DX: N31.2 Flaccid neuropathic bladder, not elsewhere classified (principal); I10 Essential (primary) hypertension; E11.9 Type 2 diabetes mellitus without complications; Z85.46 Personal history of malignant neoplasm of prostate | CPT/HCPCS: 87086; 87088; 87186 ==

== ENCOUNTER → 2017-10-23 | Outpatient (CLI) | payer OTHER | END | disposition home or self-care (01) | LOC: LAB 09:13 | PROVIDERS: ATTEND Urology | DX: N40.0 Benign prostatic hyperplasia without lower urinary tract symptoms (principal); R97.20 Elevated prostate specific antigen [PSA] | CPT/HCPCS: 36415; 84403 ==

== ENCOUNTER → 2018-04-10 | Outpatient (CLI) | payer OTHER ==
[~2018-04-10] MED LIST changes: +AMLO5TAB13 PO; -AMLO5TAB2 PO
[2018-04-10 13:10] LABS: INR 2.62 (0.9-1.15); Partial Thromboplastin Time 48.5 sec (23.78-33.04); Prothrombin Time 26.5 sec (9.27-12.13)
[2018-04-10 13:22] LABS: BUN/Creatinine Ratio 15.1; Calcium 8.3 mg/dL (8.5-10.1); Potassium 4.4 mmol/L (3.5-5.1)
[2018-04-10 14:48] LABS: Urine Blood Negative /uL (Negative); Urine Specific Gravity 1.019 (1.001-1.035)
== END | disposition home or self-care (01) ==
LOC: LAB 12:01
PROVIDERS: ATTEND Internal Medicine
DX: Z01.818 Encounter for other preprocedural examination (principal)
CPT/HCPCS: 36415; 80048; 81003; 85610; 85730

== ENCOUNTER → 2018-06-04 | Outpatient (CLI) | payer OTHER | END | disposition home or self-care (01) | LOC: LAB 09:58 | PROVIDERS: ATTEND Urology | DX: C61 Malignant neoplasm of prostate (principal) | CPT/HCPCS: 84153 ==

== ENCOUNTER → 2018-06-25 | Outpatient (CLI) | payer OTHER ==
[2018-06-25 11:08] LABS: Basophils # (auto) 0 uL; Basophils % (auto) 0.4 % (0.0-2.0); Eosinophils # (auto) 0.1 uL; Eosinophils % (auto) 1.7 % (0.0-7.0); Hematocrit 46.1 % (41.0-53.0); Hemoglobin 15.5 g/dL (13.5-17.5); Lymphocytes # (auto) 1.1 uL; Lymphocytes % (auto) 12.7 % (10.0-50.0); Mean Corpuscular Hemoglobin 28.2 pg (28.0-32.0); Mean Corpuscular Hgb Conc. 33.6 g/dL (32.0-36.0); Mean Corpuscular Volume 84.1 fL (80.0-100.0); Monocytes # (auto) 0.6 uL; Monocytes % (auto) 7.4 % (0.0-12.0); Neutrophils # (auto) 6.8 uL; Neutrophils % (auto) 77.8 % (37.0-80.0); Nucleated Red Blood Cells % 0.1 %; Platelet Count (auto) 198 10^3/uL (140-450); Red Blood Cells 5.48 10^6/uL (4.5-5.90); Red Cell Distribution Width 14.6 % (11.8-14.3); White Blood Cell 8.7 10^3/uL (4.4-10.8)
[2018-06-25 11:23] LABS: Potassium 4.1 mmol/L (3.5-5.1)
[2018-06-25 11:31] LABS: Albumin 3.8 g/dL (3.4-5.0); BUN/Creatinine Ratio 16.3; Bilirubin, Total 0.5 mg/dL (0.2-1.0); Calcium 8.7 mg/dL (8.5-10.1); Total Protein 6.9 g/dL (6.4-8.2)
== END | disposition home or self-care (01) ==
LOC: LAB 10:38
PROVIDERS: ATTEND Internal Medicine
DX: C61 Malignant neoplasm of prostate (principal)
CPT/HCPCS: 36415; 80053; 83615; 84153; 84403; 85025